=== PATIENT | female | born 1950 | race African-American/Black ===

== ENCOUNTER 2017-07-30 22:14 | Emergency (ER) | payer OTHER ==
[2017-07-30 22:45] LABS: POC GLUCOSE 303 mg/dL (70-99)
[2017-07-30] MEDS: IV NORMAL SALINE 1000ML BAG 1,000 ML IV (23:00)
[2017-07-30 23:05] LABS: ADD MAN DIFF? NO
[2017-07-30 23:06] LABS: BASO % 1 % (0-3); EOS % 1 % (0-3); HEMATOCRIT 40.8 % (36.0-47.0); HEMOGLOBIN 13.4 g/dL (12.0-15.5); LYMPH # 1.6 x10^3/uL (1.0-4.8); LYMPH % 35 % (24-48); MEAN CORPUSCULAR HEMOGLOBIN 27 pg (25-35); MEAN CORPUSCULAR HGB CONC 33 g/dL (31-37); MEAN CORPUSCULAR VOLUME 82 fL (79-100); MONO # 0.3 x10^3/uL (0.0-1.1); MONO % 7 % (0-9); NEUT # 2.6 x10^3uL (1.8-7.7); NEUT % 56 % (31-73); PLATELET COUNT 232 x10^3/uL (140-400); RED BLOOD COUNT 4.97 x10^6/uL (3.50-5.40); RED CELL DISTRIBUTION WIDTH 13.9 % (11.5-14.5); WHITE BLOOD COUNT 4.7 x10^3/uL (4.0-11.0)
[2017-07-30 23:13] LABS: ANION GAP 9 (6-14); BLOOD UREA NITROGEN 12 mg/dL (7-20); CALCIUM 9.1 mg/dL (8.5-10.1); CARBON DIOXIDE 27 mmol/L (21-32); CHLORIDE 105 mmol/L (98-107); GFR 67.1; GLUCOSE 327 mg/dL (70-99); POTASSIUM 3.9 mmol/L (3.5-5.1); SODIUM 141 mmol/L (136-145)
[2017-07-30 23:24] LABS: TROPONINI < 0.017 ng/mL (0.000-0.055)
[2017-07-31 00:03] LABS: BILIRUBIN,URINE NEGATIVE (NEG); CLARITY,URINE CLOUDY; COLOR,URINE YELLOW; GLUCOSE,URINE >=1000 mg/dL (NEG); NITRITE,URINE NEGATIVE (NEG); PH,URINE 7.5; PROTEIN,URINE NEGATIVE (NEG-TRACE)
[2017-07-31 00:10] LABS: BACTERIA,URINE FEW /HPF (0-FEW); RBC,URINE OCC /HPF (0-2)
[2017-07-31 00:11] LABS: SQUAMOUS EPITHELIAL CELL,UR MOD /LPF
[2017-07-31] MEDS: INSULIN REGULAR 100 UNIT/ML 10ML VIAL. IV (00:40)
[2017-07-31 01:34] LABS: POC GLUCOSE 119 mg/dL (70-99)
== END 2017-07-31 02:18 | disposition home or self-care (01) ==
LOC: ER 07-31 02:18
DX: E11.65 Type 2 diabetes mellitus with hyperglycemia (principal); E86.0 Dehydration; I10 Essential (primary) hypertension; R42 Dizziness and giddiness
CPT/HCPCS: 36415; 70450; 71045; 80048; 81001; 82962; 84484; 85025; 93005; 96361; 96374; 99285-25; J1815; J7030

== ENCOUNTER → 2017-08-15 | Outpatient (CLI) | payer OTHER | END | disposition home or self-care (01) | LOC: KCIC MRI 11:59 | DX: R53.1 Weakness (principal) | CPT/HCPCS: 70551 ==